=== PATIENT | male | born 1975 | race Asian ===

== ENCOUNTER 2019-01-20 21:12 | Emergency (ER) | payer OTHER ==
[~2019-01-20] VITALS: Ht 182.9 cm; Wt 86.2 kg
[~2019-01-20 21:12] MED LIST: ALBU90OI INH; ALBU90OI61 INH; ANXIETY MED; ARIP15 PO; AZIT250 PO; CARB100CH PO; CARB200 PO; CYCL10 PO; DIVA500EC PO; Daypro600 MG PO; ESCI20 PO; Excedrin Extra1 EACH; Excedrin Extra1 EACH PO; FLUO20 PO; Flonase 0.05% N16 GM; GABA100 PO; HYDACE5 PO; HYDHCL25 PO; HYDPAM50 PO; IBUP400 PO; IBUP800 PO; IPRAOI INH; LIDO2L TOP; LORA1 PO; NAPR220 PO; NAPR500EC PO; Naprosyn500 MG PO; OXCA300 PO; PRED20 PO; PRODEXEL PO; PSEU120ER PO; Prednisone20 MG PO; QUET300 PO; Ventolin/Prove6.7 GM INH
[2019-01-20 21:47] LABS: BASOPHILS ABSOLUTE AUTO 0.07 K/mm3 (0.00-0.23); BASOPHILS PERCENT AUTO 1 % (0-2); EOSINOPHILS ABSOLUTE AUTO 0.57 K/mm3 (0.00-0.68); EOSINOPHILS PERCENT AUTO 6 % (0-6); Hematocrit 46.2 % (37.0-53.0); Hemoglobin 15.7 g/dL (13.5-17.5); IMMATURE GRAN ABSOLUTE AUTO 0.02 K/mm3 (0.00-0.10); IMMATURE GRAN PERCENT AUTO 0 % (0-1); LYMPHOCYTES ABSOLUTE AUTO 3.12 K/mm3 (0.84-5.20); LYMPHOCYTES PERCENT AUTO 30 % (21-46); MONOCYTES ABSOLUTE AUTO 0.76 K/mm3 (0.16-1.47); MONOCYTES PERCENT AUTO 7 % (4-13); Mean Corpuscular HGB 31.1 pg (26.0-34.0); Mean Corpuscular Volume 92 fL (80-100); Mean Platelet Volume 11.1 fL (9.1-12.4); NEUTROPHILS ABSOLUTE AUTO 5.86 K/mm3 (1.96-9.15); NEUTROPHILS PERCENT AUTO 56 % (41-73); Platelet Count 207 K/mm3 (150-400); RDW Coefficient Variation 13.2 % (11.7-14.2); RDW Standard Deviation 44.6 fL (35.1-46.3); Red Blood Cell Count 5.05 M/mm3 (4.30-5.90)
[2019-01-20 22:04] LABS: Source, Urine Voided
[2019-01-20 22:14] LABS: Appearance, Urine Clear (Clear); Bilirubin, Urine Neg (Neg); Blood, Urine Neg (Neg); Color, Urine Yellow (P-Yellow); Glucose Qualitative, Urine Neg (Neg); Ketones, Urine Neg (Neg); Leukocyte Esterase, Urine Neg (Neg); Nitrite, Urine Neg (Neg); Protein, Urine 1+ (Neg); Specific Gravity, Urine 1.025 (1.003-1.022); Urobilinogen, Urine 3+ (Normal)
[2019-01-20 22:37] LABS: Albumin, Blood 4.1 g/dL (3.4-5.0); Albumin/Globulin Ratio 1.1 (0.8-1.8); Alk Phos 88 U/L (50-136); Anion Gap 7 mmol/L (6-16); Aspartate Aminotrans (AST/SGOT 20 U/L (12-37); Bilirubin, Total 0.4 mg/dL (0.1-1.0); Blood Urea Nitrogen 21 mg/dL (8-24); Bun/Creatinine Ratio 20.4 (12.0-20.0); CO2, Blood 28 mmol/L (21-32); Calcium, Blood 8.1 mg/dL (8.5-10.1); Chloride, Blood 108 mmol/L (98-108); Creatinine, Blood 1.03 mg/dL (0.60-1.20); Globulin, Blood 3.7 g/dL (2.2-4.0); Glomerular Filtration Rate >60 (60-); Glucose, Blood 103 mg/dL (70-99); Potassium, Blood 3.9 mmol/L (3.5-5.5); Sodium, Blood 143 mmol/L (136-145); Total Protein, Blood 7.8 g/dL (6.4-8.2)
[2019-01-20 22:45] LABS: Alanine Aminotransfer (ALT/SGP 26 U/L (12-78)
[2019-01-21] MEDS ORDERED: Percocet 10-321 EACH PO (00:46)
[2019-01-21] MEDS ORDERED: LIDO700A20 TOP (00:46)
== END 2019-01-21 01:21 | disposition home or self-care (01) ==
LOC: ER 21:12
PROVIDERS: Emergency Medicine
DX: S20.212A Contusion of left front wall of thorax, initial encounter (principal); F31.9 Bipolar disorder, unspecified; F41.9 Anxiety disorder, unspecified; Z88.8 Allergy status to other drugs, medicaments and biological substances; Z79.899 Other long term (current) drug therapy; Z79.82 Long term (current) use of aspirin; Z87.891 Personal history of nicotine dependence; X58.XXXA Exposure to other specified factors, initial encounter
CPT/HCPCS: 36415; 71046; 80053; 85025; 96374; 99284-25; A9270-GY; J1885

== ENCOUNTER 2022-04-28 19:50 | Emergency (ER) | payer OTHER ==
[~2022-04-28] VITALS: Ht 182.9 cm; Wt 88.0 kg
[~2022-04-28 19:50] MED LIST changes: +LIDO700A20 TOP; +Percocet 10-321 EACH PO
== END 2022-04-29 01:45 | disposition left against medical advice (07) ==
LOC: ER 19:50
DX: F41.9 Anxiety disorder, unspecified (principal); Z79.82 Long term (current) use of aspirin; Z79.899 Other long term (current) drug therapy; Z53.21 Procedure and treatment not carried out due to patient leaving prior to being seen by health care provider
CPT/HCPCS: 99281

== ENCOUNTER 2023-03-22 17:28 | Emergency (ER) | payer OTHER ==
[~2023-03-22] VITALS: Ht 182.9 cm; Wt 89.8 kg
[2023-03-22 17:50] VITALS: BP 159/90
[2023-03-22] MEDS ORDERED: NAPR500 PO (20:35)
== END 2023-03-22 21:33 | disposition home or self-care (01) ==
LOC: ER 17:28
DX: G89.29 Other chronic pain (principal); M54.50 Low back pain, unspecified; F17.210 Nicotine dependence, cigarettes, uncomplicated; Z88.8 Allergy status to other drugs, medicaments and biological substances; Z79.82 Long term (current) use of aspirin
CPT/HCPCS: A9270; J1885

== ENCOUNTER 2023-04-17 17:02 | Emergency (ER) | payer OTHER ==
[~2023-04-17] VITALS: Ht 182.9 cm; Wt 89.8 kg
[~2023-04-17 17:02] MED LIST changes: +NAPR500 PO
[2023-04-17 17:13] VITALS: BP 129/94
[2023-04-17] MEDS ORDERED: Ativan1 MG PO (17:17)
== END 2023-04-17 17:19 | disposition home or self-care (01) ==
LOC: ER 17:02
DX: F41.9 Anxiety disorder, unspecified (principal); Z88.8 Allergy status to other drugs, medicaments and biological substances; Z79.899 Other long term (current) drug therapy; Z79.82 Long term (current) use of aspirin; Z87.891 Personal history of nicotine dependence
CPT/HCPCS: 99282

== ENCOUNTER 2023-06-12 07:30 | Day surgery (SDC) | payer OTHER ==
[~2023-06-12] VITALS: Ht 182.9 cm; Wt 82.9 kg
[~2023-06-12 07:30] MED LIST changes: +Ativan1 MG PO
[2023-06-12] MEDS ORDERED: BACL10 PO (08:24)
[2023-06-12] MEDS ORDERED: ALBU90OI INH (08:35)
[2023-06-12] MEDS ORDERED: ALBU2.5V5 INH (08:36)
[2023-06-12 09:38] VITALS: BP 100/65
== END 2023-06-12 09:41 | disposition home or self-care (01) ==
LOC: ORSCSDS 07:30
PROVIDERS: Internal Medicine Gastroenterology
PROC: 0DB78ZX Excision of Stomach, Pylorus, Via Natural or Artificial Opening Endoscopic, Diagnostic (ICD-10-PCS; principal; 2023-06-12 08:45)
PROC: 0DBN8ZX Excision of Sigmoid Colon, Via Natural or Artificial Opening Endoscopic, Diagnostic (ICD-10-PCS; principal; 2023-06-12 08:45)
DX: K62.5 Hemorrhage of anus and rectum (principal); K59.00 Constipation, unspecified; K21.9 Gastro-esophageal reflux disease without esophagitis; K63.5 Polyp of colon; K29.70 Gastritis, unspecified, without bleeding; K64.4 Residual hemorrhoidal skin tags; R10.13 Epigastric pain; F17.210 Nicotine dependence, cigarettes, uncomplicated; Z79.899 Other long term (current) drug therapy
CPT/HCPCS: 88305; 88342; J2704; J7120

== ENCOUNTER 2025-10-11 10:35 | Emergency (ER) | payer MEDICARE, OTHER ==
[~2025-10-11] VITALS: Ht 175.3 cm; Wt 79.4 kg
[~2025-10-11 10:35] MED LIST changes: +ALBU2.5V5 INH; +BACL10 PO
[2025-10-11 11:01] VITALS: BP 156/99
[2025-10-11] MEDS ORDERED: JUBLIA4 ML TOP (11:27)
[2025-10-11] MEDS ORDERED: HYDR1TAB94 PO (11:29)
== END 2025-10-11 12:04 | disposition home or self-care (01) ==
LOC: ER 10:35
DX: B35.1 Tinea unguium (principal); I10 Essential (primary) hypertension; J45.909 Unspecified asthma, uncomplicated; Z87.891 Personal history of nicotine dependence; Z88.8 Allergy status to other drugs, medicaments and biological substances; Z79.82 Long term (current) use of aspirin; Z79.899 Other long term (current) drug therapy
CPT/HCPCS: 99283